=== PATIENT | female | born 1940 | race Asian ===

== ENCOUNTER 2017-01-25 08:50 | Day surgery (SDC) | payer MEDICARE, MEDICAID ==
[~2017-01-25] VITALS: Ht 157.5 cm; Wt 68.2 kg
[~2017-01-25 08:50] MED LIST: ASPI81 PO; FOLI-74 PO; HYDR25TA PO; LOSA25TA21 PO; MELO-107 PO
[2017-01-25] MEDS ORDERED: MIDAZOLAM HCL 2 MG/2 ML VIAL IVP ONE (08:51)
[2017-01-25] MEDS ORDERED: FentaNYL CITRATE-PF 100 MCG/2 ML VIAL IVP ONE (08:51)
[2017-01-25] MEDS ORDERED: RINGERS SOLUTION,LACTATED 500 ML IV ONE ×2 (09:01→09:30)
[2017-01-25] MEDS ORDERED: PHENYLEPHRINE HCL 2.5% 2 ML OPHTHALMIC SOLUTION ONE (09:02)
[2017-01-25] MEDS ORDERED: MOXIFLOXACIN HCL 0.5% 3 ML OPHTHALMIC SOLUTION ONE (09:02)
[2017-01-25] MEDS ORDERED: TROPICAMIDE 1% 2 ML OPHTHALMIC SOLUTION ONE (09:02)
[2017-01-25] MEDS ORDERED: DICLOFENAC SODIUM 0.1% 2.5 ML OPHTHALMIC SOLUTION ONE (09:02)
[2017-01-25] MEDS ORDERED: 0.9% SODIUM CHLORIDE 10 ML SYRINGE IVP PRN (09:30)
[2017-01-25] MEDS ORDERED: DICLOFENAC SODIUM 0.1% 2.5 ML OPHTHALMIC SOLUTION OS ONE (09:30)
[2017-01-25] MEDS ORDERED: MOXIFLOXACIN HCL 0.5% 3 ML OPHTHALMIC SOLUTION OS ONE (09:30)
[2017-01-25] MEDS: TROPICAMIDE 1% 2 ML OPHTHALMIC SOLUTION OS SCH ×2 (09:42→09:48)
[2017-01-25] MEDS: PHENYLEPHRINE HCL 2.5% 2 ML OPHTHALMIC SOLUTION OS SCH ×2 (09:42→09:47)
== END 2017-01-25 12:25 | disposition home or self-care (01) ==
LOC: SURGERY 08:50
PROVIDERS: ATTEND Specialist
DX: H25.012 Cortical age-related cataract, left eye (principal); H40.9 Unspecified glaucoma; I10 Essential (primary) hypertension; E66.3 Overweight
CPT/HCPCS: 66984; 93005; C1780; J2250; J3010; J7120